=== PATIENT | female | born 1935 | race Caucasian/White ===

== ENCOUNTER → 2021-01-16 | Day surgery (SDC) | payer MEDICARE ==
[~2021-01-16] MED LIST: ALBUTEROL NEBULIZER INH; CELEBREX 200MG200 MG PO; CRESTOR40 MG PO; DAILY VITE1 EACH PO; K-TAB ER10 MEQ PO; LASIX20 MG PO; LATANOPROST2.5 ML EYEBOTH; LOW DOSE ASPIRI81 MG PO; METFORMIN HCL500 MG PO; METOPROLOL SUCC25 MG PO; PLAVIX75 MG PO; PROTONIX 40 MG40 M1 PO; RAMIPRIL10 MG PO; VENTOLIN HFA 66.7 GM INH; XANAX0.5 MG PO; ZAROXOLYN/DIUL2.5 MG PO; ZYRTEC10 MG PO
== END | disposition home or self-care (01) ==
LOC: OR 05:49
PROVIDERS: Surgery
PROC: 0DH63UZ Insertion of Feeding Device into Stomach, Percutaneous Approach (ICD-10-PCS; principal; 2021-01-16 07:30)
DX: C32.9 Malignant neoplasm of larynx, unspecified (principal); K21.9 Gastro-esophageal reflux disease without esophagitis; I10 Essential (primary) hypertension; F17.200 Nicotine dependence, unspecified, uncomplicated; R63.4 Abnormal weight loss; Z85.21 Personal history of malignant neoplasm of larynx; Z79.84 Long term (current) use of oral hypoglycemic drugs; Z79.82 Long term (current) use of aspirin; Z79.899 Other long term (current) drug therapy; Z20.822 Contact with and (suspected) exposure to COVID-19; Z79.1 Long term (current) use of non-steroidal anti-inflammatories (NSAID); Z79.02 Long term (current) use of antithrombotics/antiplatelets
CPT/HCPCS: 82962; J0690; J2704; J7030